=== PATIENT | female | born 1990 | race Caucasian/White ===

== ENCOUNTER 2019-04-25 23:54 | Outpatient (CLI) | payer OTHER ==
[2019-04-26 00:29] LABS: APPEARANCE,URINE CLEAR; BILIRUBIN,URINE NEGATIVE (NEGATIVE); COLOR,URINE STRAW; GLUCOSE, URINE NEGATIVE (NEGATIVE); KETONES,URINE NEGATIVE (NEGATIVE); LEUKOCYTE ESTERASE,URINE NEGATIVE (NEGATIVE); NITRITE,URINE NEGATIVE (NEGATIVE); PROTEIN,URINE NEGATIVE (NEGATIVE); URINE SPECIFIC GRAVITY 1.005; UROBILINOGEN,URINE NEGATIVE mg/dL (<2.0)
[2019-04-26 00:49] LABS: URINE AMPHETAMINES SCREEN NEGATIVE; URINE BARBITURATES SCREEN NEGATIVE; URINE BENZODIAZEPINES SCREEN NEGATIVE; URINE COCAINE SCREEN NEGATIVE; URINE MARIJUANA (THC) SCREEN NEGATIVE; URINE METHADONE SCREEN NEGATIVE; URINE PHENCYCLIDINE SCREEN NEGATIVE
--- NOTE | 2019-04-26 01:13 | Non Stress Test Report ---
Non Stress Test Datetime Report Generated by CPN: 04/26/2019 01:13 DEMOGRAPHIC EGA NST: 40.1 INDICATION Indication for Study (NST) Other: Ordered by provider URINE RESULTS Urine Protein, NST: Negative Urine Ketones - NST: Negative Urine Glucose - NST: Negative Urine Blood - NST: Negative MONITORING Monitor Explained: Monitor Explained; Test Explained; Patient Verbalized Understanding Time on Monitor: 04/26/2019 00:09 Time off Monitor: 04/26/2019 01:04 NST Duration: 55 NST INTERVENTIONS NST Interventions: PO Hydration Physician Notified NST: Dr. Howard BABY A: [id number] BABY A Movement : Present Contraction Frequency : 2-5 FHR Baseline : 125 Accelerations : 15X15 Decelerations : None Variability : Moderate 6-25bpm NST Review: Meets Criteria for Reactive NST NST Review and Verified By : marii MIRANDA Results: Reactive NST REPORT Report Trigger: Send Report
== END 2019-04-26 01:10 | disposition home or self-care (01) ==
LOC: LC 23:54
PROVIDERS: ATTEND Obstetrics & Gynecology
PROC: 4A1HXCZ Monitoring of Products of Conception, Cardiac Rate, External Approach (ICD-10-PCS; principal; 2019-04-25)
DX: O47.1 False labor at or after 37 completed weeks of gestation (principal); O48.0 Post-term pregnancy; Z3A.40 40 weeks gestation of pregnancy
CPT/HCPCS: 59025; 80307; 81005; 84112

== ENCOUNTER 2019-04-28 09:47 | Outpatient (CLI) | payer OTHER ==
--- NOTE | 2019-04-28 10:40 | Non Stress Test Report ---
Non Stress Test Datetime Report Generated by CPN: 04/28/2019 10:39 DEMOGRAPHIC EGA NST: 40.3 INDICATION Indication for Study (NST) Other: IUP @ 40.3 MONITORING Monitor Explained: Monitor Explained; Test Explained; Patient Verbalized Understanding Time on Monitor: 04/28/2019 09:58 Time off Monitor: 04/28/2019 10:34 NST Duration: 36 NST INTERVENTIONS NST Interventions: PO Hydration; Reposition Patient Physician Notified NST: Kely John, CNM BABY A: [id number] BABY A Movement : Present Contraction Frequency : occasional FHR Baseline : 125 Accelerations : 15X15 Decelerations : None Variability : Moderate 6-25bpm NST Review: Meets Criteria for Reactive NST NST Review and Verified By : Issac Christian RN NST Results: Reactive NST REPORT Report Trigger: Send Report
[2019-04-28 11:01] LABS: URINE AMPHETAMINES SCREEN NEGATIVE; URINE BARBITURATES SCREEN NEGATIVE; URINE BENZODIAZEPINES SCREEN NEGATIVE; URINE COCAINE SCREEN NEGATIVE; URINE MARIJUANA (THC) SCREEN NEGATIVE; URINE METHADONE SCREEN NEGATIVE; URINE PHENCYCLIDINE SCREEN NEGATIVE
[2019-04-28 11:07] LABS: APPEARANCE,URINE CLEAR; BILIRUBIN,URINE NEGATIVE (NEGATIVE); COLOR,URINE STRAW; GLUCOSE, URINE NEGATIVE (NEGATIVE); KETONES,URINE NEGATIVE (NEGATIVE); LEUKOCYTE ESTERASE,URINE SMALL (NEGATIVE); NITRITE,URINE NEGATIVE (NEGATIVE); PROTEIN,URINE NEGATIVE (NEGATIVE); URINE SPECIFIC GRAVITY 1.004; UROBILINOGEN,URINE NEGATIVE mg/dL (<2.0)
== END 2019-04-28 11:55 | disposition home or self-care (01) ==
LOC: LC 09:47
PROVIDERS: ATTEND Obstetrics & Gynecology
PROC: 4A1HXCZ Monitoring of Products of Conception, Cardiac Rate, External Approach (ICD-10-PCS; principal; 2019-04-28)
DX: Z34.93 Encounter for supervision of normal pregnancy, unspecified, third trimester (principal)
CPT/HCPCS: 59025; 80307; 81005

== ENCOUNTER 2019-05-02 15:14 | Inpatient (IN) | payer OTHER, MEDICAID ==
[2019-05-02] MEDS ORDERED: RINGERS SOLUTION,LACTATED 1,000 ML IV PRN (15:40)
[2019-05-02] MEDS ORDERED: RINGERS SOLUTION,LACTATED 1,000 ML IV ONE (15:40)
[2019-05-02] MEDS ORDERED: MISOPROSTOL 0.2 MG TABLET ONE (15:53)
[2019-05-02] MEDS ORDERED: OXYTOCIN 10 UNIT/ML VIAL ONE (15:53)
[2019-05-02] MEDS ORDERED: LIDOCAINE 1% INJ-PF (10 MG/ML) 30 ML SDV ONE (15:53)
[2019-05-02] MEDS ORDERED: OXYTOCIN/NORMAL SALINE 20 UNIT/1,000 ML RTUINJ ONE (15:53)
[2019-05-02 16:05] LABS: APPEARANCE,URINE SLIGHTLY-CLOUDY; BILIRUBIN,URINE NEGATIVE (NEGATIVE); COLOR,URINE STRAW; GLUCOSE, URINE NEGATIVE (NEGATIVE); KETONES,URINE NEGATIVE (NEGATIVE); URINE SPECIFIC GRAVITY 1.008
[2019-05-02 16:06] LABS: LEUKOCYTE ESTERASE,URINE TRACE (NEGATIVE); NITRITE,URINE NEGATIVE (NEGATIVE); PROTEIN,URINE NEGATIVE (NEGATIVE); UROBILINOGEN,URINE NEGATIVE mg/dL (<2.0)
[2019-05-02 16:18] LABS: ABSOLUTE BASOPHILS # (AUTO) 0.1 10^3/uL (0.0-0.2); ABSOLUTE EOSINOPHILS # (AUTO) 0.2 10^3/uL (0.0-0.6); ABSOLUTE LYMPHOCYTES (AUTO) 2.6 10^3/uL (0.5-4.7); ABSOLUTE NEUT (AUTO) 7.4 10^3/uL (1.7-8.2); BASOPHILS % (AUTO) 0.7 % (0-2); EOSINOPHILS % (AUTO) 1.7 % (0-6); HEMATOCRIT 32.7 % (36.0-47.0); HEMOGLOBIN 11.2 g/dL (12.0-15.5); LYMPHOCYTES % (AUTO) 23.4 % (13-45); MEAN CORPUSCULAR HEMOGLOBIN 30.7 pg (27.0-33.4); MEAN CORPUSCULAR HGB CONC 34.2 g/dL (32.0-36.0); MEAN CORPUSCULAR VOLUME 90 fl (80-97); MONOCYTES % (AUTO) 9.1 % (3-13); PLATELET COUNT 191 10^3/uL (150-450); RED BLOOD COUNT 3.64 10^6/uL (3.72-5.28); RED CELL DISTRIBUTION WIDTH 12.8 % (11.5-14.0); SEGMENTED NEUTROPHILS % (AUTO) 65.1 % (42-78); TOTAL CELLS COUNTED % (AUTO) 100 %; WHITE BLOOD COUNT 11.3 10^3/uL (4.0-10.5)
[2019-05-02 16:42] LABS: URINE AMPHETAMINES SCREEN NEGATIVE; URINE BARBITURATES SCREEN NEGATIVE; URINE BENZODIAZEPINES SCREEN NEGATIVE; URINE COCAINE SCREEN NEGATIVE; URINE MARIJUANA (THC) SCREEN NEGATIVE; URINE METHADONE SCREEN NEGATIVE; URINE PHENCYCLIDINE SCREEN NEGATIVE
--- NOTE | 2019-05-02 16:43 | Admission Physical ---
Datetime Report Generated by CPN: 05/02/2019 16:43 CURRENT ADMISSION Chief Complaint: Uterine Contractions Indication for Induction: Not Applicable Admit Impression : Term, Intrauterine Admit Plan: Admit to Unit; Initiate Labor Protocol ALLERGIES Medication Allergies: No Medication Allergies: No Known Allergies (04/26/2019) Latex: No Latex Allergies OBSTETRICAL HISTORY EDC: 04/25/2019 00:00 : 3 Para: 2 Term: 2 : 0 SAB: 0 IAB: 0 Ectopic: 0 Livin Cesareans: 0 VBACs: 0 Multiple Births: 0 Gestational Diabetes: No Rh Sensitization: No Incompetent Cervix: No SHANA: No Infertility: No ART Treatment: No Uterine Anomaly: No IUGR: No Hx Previous C/S: No Macrosomia: No Hx Loss/Stillborn: No PIH: No Hx : No Placenta Previa/Abruption: No Depression/PP Depression: Yes PTL/PROM: No Post Hemorrhage: No Current Procedures: Ultrasound Obstetrical History Comments: G1: 42 weeks; ; Vacuum assisted; Baby Boy G2: 39 weeks; ; Baby Girl G3: current SEE RECORDS Alcohol: No Marijuana : No Cocaine: No Other Illicit Drugs: No Cigarettes: Never Smoker. [id number] MEDICAL HISTORY Diabetes: No Blood Transfusion: No Pulmonary Disease (Asthma, TB): No Breast Disease: No Hypertension: No Assistant Attorney General Surgery: No Heart Disease: No Hosp/Surgery: Yes Autoimmune Disorder: No Anesthetic Complications: No Kidney Disease: No Abnormal Pap Smear: No Neuro/Epilepsy: No Psychiatric Disorders: No Other Medical Diseases: No Hepatitis/Liver Disease: No Significant Family History: No Varicosities/Phlebitis: No Trauma/Violence : No Thyroid Dysfunction: No Medical History Comments: PPD (on lexapro) INFECTIOUS HISTORY Gonorrhea: No Genital Herpes: No Chlamydia: No Tuberculosis: No Syphilis: No Hepatitis: No HIV/AIDS Exposure: No Rash or Viral Illness: No HPV: No PHYSICAL EXAM General: Normal HEENT: Normal Neurologic: Normal Thyroid: Normal Heart: Normal Lungs: Normal Breast: Deferred Back: Normal Abdomen: Normal Genitourinary Exam: Normal Extremities: Normal DTRs: Normal Pelvic Type: Adequate FETUS A EGA: 41.0 PLANS FOR LABOR AND DELIVERY Labor and Delivery: None Pain Management: None Feeding Preference: Breast Benefit of Breast Feed Discussed: Yes Circumcision: N/A INFORMED CONSENT Signature: with User ID: [email or web address]
[2019-05-02] MEDS ORDERED: ACETAMINOPHEN WITH CODEINE #3 TABLET PO PRN (19:18)
[2019-05-02] MEDS ORDERED: ACETAMINOPHEN 650 MG SUPP.RECT PR PRN (19:18)
[2019-05-02] MEDS ORDERED: GLYCERIN/WITCH HAZEL LEAF 1 EACH MED..WIPE TP PRN (19:18)
[2019-05-02] MEDS ORDERED: DIBUCAINE 1% OINTMENT 28 GM TP PRN (19:18)
[2019-05-02] MEDS ORDERED: DIPH/PERTUSS(ACELL)/TETANUS VAC/PF 0.5 ML SYR (>=10YO) IM PRN (19:18)
[2019-05-02] MEDS ORDERED: PROMETHAZINE HCL 25 MG SUPP.RECT PR PRN (19:18)
[2019-05-02] MEDS ORDERED: ZOLPIDEM TARTRATE 5 MG TABLET PO PRN (19:18)
[2019-05-02] MEDS ORDERED: MAGNESIUM HYDROXIDE SUSP 30 ML UDCUP PO PRN (19:18)
[2019-05-02] MEDS ORDERED: PROMETHAZINE HCL 25 MG TABLET PO PRN (19:18)
[2019-05-02] MEDS ORDERED: OXYTOCIN/NORMAL SALINE 20 UNIT/1,000 ML RTUINJ IV PRN (19:18)
[2019-05-02] MEDS ORDERED: PSEUDOEPHEDRINE HCL 30 MG TABLET PO PRN (19:18)
[2019-05-02] MEDS ORDERED: PROMETHAZINE HCL INJ 25 MG/1 ML VIAL IV PRN (19:18)
[2019-05-02] MEDS ORDERED: BENZOCAINE/MENTHOL AEROSOL SPRAY 56 ML TOP PRN (19:18)
[2019-05-02] MEDS ORDERED: NA PHOS,M-B/NA PHOS,DI-BA (ADULT) 133 ML ENEMA PR PRN (19:18)
[2019-05-02] MEDS ORDERED: MEASLES,MUMPS&RUBELLA VACC/PF 0.5 ML VIAL SUBCUT PRN (19:18)
[2019-05-02] MEDS ORDERED: DIPHENHYDRAMINE HCL 25 MG CAPSULE PO PRN (19:18)
[2019-05-02] MEDS: FAMOTIDINE 20 MG TABLET PO SCH (21:31)
[2019-05-02] MEDS: IBUPROFEN 800 MG TABLET PO SCH (21:31)
[2019-05-03] MEDS: IBUPROFEN 800 MG TABLET PO SCH ×3 (05:11→22:20)
[2019-05-03 08:03] LABS: HEMATOCRIT 29.6 % (36.0-47.0); HEMOGLOBIN 10.2 g/dL (12.0-15.5); MEAN CORPUSCULAR HGB CONC 34.4 g/dL (32.0-36.0); MEAN CORPUSCULAR VOLUME 90 fl (80-97); PLATELET COUNT 186 10^3/uL (150-450); RED BLOOD COUNT 3.28 10^6/uL (3.72-5.28); RED CELL DISTRIBUTION WIDTH 13.2 % (11.5-14.0); WHITE BLOOD COUNT 17.9 10^3/uL (4.0-10.5)
[2019-05-03] MEDS: DOCUSATE SODIUM 100 MG CAPSULE PO SCH ×2 (09:13→19:31)
[2019-05-03] MEDS: PRENATAL VITAMIN W DHA CAPSULE PO SCH (09:14)
[2019-05-03] MEDS: FAMOTIDINE 20 MG TABLET PO SCH ×2 (09:14→22:20)
[2019-05-03] MEDS: SENNOSIDES/DOCUSATE 8.6-50 MG 1 EACH TABLET PO SCH (09:14)
[2019-05-03] MEDS: FERROUS SULFATE 325 MG TABLET PO SCH ×2 (09:14→19:31)
[2019-05-03] MEDS ORDERED: PRENATAL VITAMIN W DHA CAPSULE PO SCH (10:00)
--- NOTE | 2019-05-03 12:14 | PDOC PROGRESS REPORT ---
Subjective-OB Progress Note for:: 05/03/19 - PP Day #1, doing well, no issues this morning, B+, Rubella immune, UOB voiding Physical Exam (OB) Vital Signs: Temp Pulse Resp BP Pulse Ox 97.9 F 73 16 95/59 L 100 05/03/19 07:19 05/03/19 07:19 05/03/19 07:19 05/03/19 07:19 05/03/19 07:19 Intake & Output 05/02/19 05/03/19 05/04/19 06:59 06:59 06:59 Weight 73.482 kg - General General Appearance: Appears well, Alert In distress: None - PIH/Pre-Eclampsia Headache: Absent Epigastric Pain: No Visual Changes: No - Lochia Lochia Amount: Small 10-25 ml Lochia Color: Rubra/Red - Abdomen Description: Soft Hernia Present: No Fundal Description: Firm, Midline Fundal Height: u/u - u/2 - Respiratory Respiratory Status: No respiratory distress - Abdominal Distension: No distension Tenderness: Nontender - Genitourinary Genitourinary Note: voiding - Extremities Upper extremity: Normal inspection Lower extremities: Normal inspection - Neurological Cognition: Normal Orientation: AAOx4 - Psychological Associated symptoms: Normal affect, Normal mood - Skin Skin Temperature: Warm Skin Moisture: Dry Objective-Diagnostic Laboratory: 05/03/19 07:26 05/02/19 05/02/19 05/02/19 15:20 16:02 16:02 WBC 11.3 H RBC 3.64 L Hgb 11.2 L Hct 32.7 L MCV 90 MCH 30.7 MCHC 34.2 RDW 12.8 Plt Count 191 Seg Neutrophils % 65.1 Urine Color STRAW Urine Appearance SLIGHTLY-CLOUDY Urine pH 7.0 Ur Specific Onyx 1.008 Urine Protein NEGATIVE Urine Glucose (UA) NEGATIVE Urine Ketones NEGATIVE Urine Blood MODERATE H Urine Nitrite NEGATIVE Ur Leukocyte Esterase TRACE H Blood Type B POSITIVE Antibody Screen NEGATIVE 05/03/19 07:26 WBC 17.9 H RBC 3.28 L Hgb 10.2 L Hct 29.6 L MCV 90 MCH 31.0 MCHC 34.4 RDW 13.2 Plt Count 186 Seg Neutrophils % Urine Color Urine Appearance Urine pH Ur Specific Onyx Urine Protein Urine Glucose (UA) Urine Ketones Urine Blood Urine Nitrite Ur Leukocyte Esterase Blood Type Antibody Screen Assessment and Plan(PN) - Assessment and Plan (1) (normal spontaneous vaginal delivery) Is this a current diagnosis for this admission?: Yes Plan:: routine PP orders, ambulation encouraged - Time Spent with Patient Time with patient: Less than 15 minutes Medications reviewed and adjusted accordingly: Yes - Disposition Anticipated Discharge: Home Within: within 24 hours
[2019-05-04] MEDS: IBUPROFEN 800 MG TABLET PO SCH (06:31)
[2019-05-04] MEDS: PRENATAL VITAMIN W DHA CAPSULE PO SCH (09:26)
[2019-05-04] MEDS: DOCUSATE SODIUM 100 MG CAPSULE PO SCH (09:27)
[2019-05-04] MEDS: FERROUS SULFATE 325 MG TABLET PO SCH (09:27)
[2019-05-04] MEDS: FAMOTIDINE 20 MG TABLET PO SCH (09:27)
[2019-05-04] MEDS: SENNOSIDES/DOCUSATE 8.6-50 MG 1 EACH TABLET PO SCH (09:28)
--- NOTE | 2019-05-04 11:09 | PDOC DISCHARGE SUMMARY ---
Impression - Admit/DC Date/PCP Admission Date/Primary Care Provider: 05/02/19 15:54 GERONIMO PARKER DO Discharge Date: 05/04/19 - Discharge Diagnosis (1) Normal course Is this a current diagnosis for this admission?: Yes (2) (normal spontaneous vaginal delivery) Is this a current diagnosis for this admission?: Yes - Additional Information Resuscitation Status: Full Code Discharge Diet: Regular Discharge Activity: Balance Activity w/Rest, Pelvic Rest Referrals: GERONIMO FINCH DO [Primary Care Provider] - Home Medications: Vit/Dha [ Multi + Dha Capsule] 1 cap PO DAILY capsule 05/04/19 Results Laboratory Results: WBC 17.9 10^3/uL (4.0-10.5) H 05/03/19 07:26 RBC 3.28 10^6/uL (3.72-5.28) L 05/03/19 07:26 Hgb 10.2 g/dL (12.0-15.5) L 05/03/19 07:26 Hct 29.6 % (36.0-47.0) L 05/03/19 07:26 MCV 90 fl (80-97) 05/03/19 07:26 MCH 31.0 pg (27.0-33.4) 05/03/19 07:26 MCHC 34.4 g/dL (32.0-36.0) 05/03/19 07:26 RDW 13.2 % (11.5-14.0) 05/03/19 07:26 Plt Count 186 10^3/uL (150-450) 05/03/19 07:26 Lymph % (Auto) 23.4 % (13-45) 05/02/19 16:02 Tompkins % (Auto) 9.1 % (3-13) 05/02/19 16:02 Eos % (Auto) 1.7 % (0-6) 05/02/19 16:02 Baso % (Auto) 0.7 % (0-2) 05/02/19 16:02 Absolute Neuts (auto) 7.4 10^3/uL (1.7-8.2) 05/02/19 16:02 Absolute Lymphs (auto) 2.6 10^3/uL (0.5-4.7) 05/02/19 16:02 Absolute Monos (auto) 1.0 10^3/uL (0.1-1.4) 05/02/19 16:02 Absolute Eos (auto) 0.2 10^3/uL (0.0-0.6) 05/02/19 16:02 Absolute Basos (auto) 0.1 10^3/uL (0.0-0.2) 05/02/19 16:02 Seg Neutrophils % 65.1 % (42-78) 05/02/19 16:02 Urine Color STRAW 05/02/19 15:20 Urine Appearance SLIGHTLY-CLOUDY 05/02/19 15:20 Urine pH 7.0 (5.0-9.0) 05/02/19 15:20 Ur Specific Tucker 1.008 05/02/19 15:20 Urine Protein NEGATIVE mg/dL (NEGATIVE) 05/02/19 15:20 Urine Glucose (UA) NEGATIVE mg/dL (NEGATIVE) 05/02/19 15:20 Urine Ketones NEGATIVE mg/dL (NEGATIVE) 05/02/19 15:20 Urine Blood MODERATE (NEGATIVE) H 05/02/19 15:20 Urine Nitrite NEGATIVE (NEGATIVE) 05/02/19 15:20 Urine Bilirubin NEGATIVE (NEGATIVE) 05/02/19 15:20 Urine Urobilinogen NEGATIVE mg/dL (<2.0) 05/02/19 15:20 Ur Leukocyte Esterase TRACE (NEGATIVE) H 05/02/19 15:20 Urine Ascorbic Acid NEGATIVE (NEGATIVE) 05/02/19 15:20 Urine Opiates Screen NEGATIVE 05/02/19 15:20 Urine Methadone Screen NEGATIVE 05/02/19 15:20 Ur Barbiturates Screen NEGATIVE 05/02/19 15:20 Ur Phencyclidine Scrn NEGATIVE 05/02/19 15:20 Ur Amphetamines Screen NEGATIVE 05/02/19 15:20 U Benzodiazepines Scrn NEGATIVE 05/02/19 15:20 Urine Cocaine Screen NEGATIVE 05/02/19 15:20 U Marijuana (THC) Screen NEGATIVE 05/02/19 15:20 RPR NONREACTIVE (NONREACTIVE) 05/02/19 16:02 Blood Type B POSITIVE 05/02/19 16:02 Antibody Screen NEGATIVE 05/02/19 16:02
[2019-05-04 12:12] VITALS: BP 106/66
--- NOTE | 2019-05-05 14:16 | Delivery Summary ---
Del Sum A-C Datetime Report Generated by CPN: 05/05/2019 14:16 DELIVERY PERSONNEL DELIVERY PERSONNEL: [id number] Delivery Doctor:: Gagan Snow, MD Labor and Delivery Nurse:: Radha Tano, RN MATERNAL INFORMATION Delivery Anesthesia: None Medications After Delivery: Pitocin Bolus-Please Comment; Pitocin Drip 20 Units/1000ml NSS Meds After Delivery Comment: Pitocin 20 units in 1000mL NS Maternal Complications: None LABOR SUMMARY EDC: 04/25/2019 00:00 No. Babies in Womb: 1 Attempted: No Labor Anesthesia: None LABOR INFORMATION Reason for Induction: Not Applicable Onset of Labor: 04/28/2019 04:00 Complete Dilatation: 05/02/2019 18:44 Oxytocin: N/A Group B Beta Strep: NEGATIVE Antibiotics # of Doses: 0 Steroids Given: None Reason Steroids Not Administered: Not Applicable MEMBRANES Membranes Rupture Method: Artificial Rupture of Membranes: 05/02/2019 16:42 Length of Rupture (hr): 2.13 Amniotic Fluid Color: Light Meconium Amniotic Fluid Amount: Scant STAGES OF LABOR Stage 1 hr: 110 Stage 1 min: 44 Stage 2 hr: 0 Stage 2 min: 6 Stage 3 hr: 0 Stage 3 min: 6 Total Time in Labor hr: 110 Total Time in Labor min: 56 VAGINAL DELIVERY Episiotomy: None Laceration #1: None Laceration Extension #1: N/A Laceration Repair: Not Applicable BABY A INFORMATION Delivery Date/Time: 05/02/2019 18:50 Method of Delivery: Vaginal Born in Route : No : N/A Forceps: N/A Vacuum Extraction: N/A Shoulder Dystocia : No PRESENTATION/POSITION BABY A Presentation: Cephalic Presentation: Cephalic Cephalic Presentation: Vertex Vertex Position: Right Occipital Posterior Breech Presentation: N/A PLACENTA INFORMATION BABY A Placenta Delivery Time : 05/02/2019 18:56 Placenta Method of Delivery: Spontaneous Placenta Status: Delivered SCORES BABY A Heart Rate 1 min: >100 bpm Resp Effort 1 min: Slow, Irregular Reflex Irritability 1 min: Cough or Sneeze or Pulls Away Muscle Tone 1 min: Some Flexion of Extremities Color 1 min: Body [place], Extremities Blue SCORE 1 MIN: 7 Heart Rate 5 min: >100 bpm Resp Effort 5 min: Good Cry Reflex Irritability 5 min: Cough or Sneeze or Pulls Away Muscle Tone 5 min: Active Motion Color 5 min: Body [place], Extremities Blue SCORE 5 MIN: 9 INFANT INFORMATION BABY A Gestational Age at Delivery: 41.0 Gestational Status: Late Term- 41- 41.6 Weeks Infant Outcome : Liveborn Condition : Stable Sex: Female IDENTIFICATION BABY A Infant Verification Date/Time: 05/02/2019 19:39 ID Band Number: [id number] Mother's Name Verified: Yes RN Verifying Infant: Aleksey Belcher RN Additional Verifying Personnel: Nikole Hernandez RN CORD INFORMATION BABY A No. Cord Vessels: 3 Nuchal Cord : Around Neck x1, Loose Nuchal Cord : Around Neck x1, Loose Cord Blood Taken: Yes-For Storage (Mom's Blood type +) Infant Suction: None ASSESSMENT BABY A Complications: None Physical Findings at Delivery: Within Normal Limits Transferred To: Remains with Mother SIGNATURES Signature: with User ID: [email or web address]
== END 2019-05-04 12:25 | disposition home or self-care (01) | DRG 807 ==
LOC: LC 15:14 → LR 15:54 → 2S 21:03
PROVIDERS: ADMIT Obstetrics & Gynecology Gynecology; ATTEND Obstetrics & Gynecology Gynecology
PROC: 10E0XZZ Delivery of Products of Conception, External Approach (ICD-10-PCS; principal; 2019-05-02)
PROC: 10907ZC Drainage of Amniotic Fluid, Therapeutic from Products of Conception, Via Natural or Artificial Opening (ICD-10-PCS; 2019-05-02)
DX: O77.0 Labor and delivery complicated by meconium in amniotic fluid (principal); Z37.0 Single live birth; O69.81X0 Labor and delivery complicated by cord around neck, without compression, not applicable or unspecified; Z3A.41 41 weeks gestation of pregnancy
CPT/HCPCS: 36415; 59025; 80307; 81005; 85025; 85027; 86592; 86850; 86900; 86901; J2590; J3490